=== PATIENT | male | born 1985 | race Caucasian/White ===

== ENCOUNTER 2017-04-13 09:53 | Emergency (ER) | payer OTHER ==
[~2017-04-13] VITALS: Ht 172.7 cm; Wt 84.0 kg
[2017-04-13 09:58] VITALS: BP 124/79
[2017-04-13] MEDS ORDERED: HYDROcodone/APAP 5/325 TABLET ONE (10:34)
[2017-04-13] MEDS ORDERED: HYDROcodone/APAP 5/325 TABLET PO ONE (11:00)
== END 2017-04-13 11:21 | disposition home or self-care (01) ==
LOC: ED 11:15
DX: S76.112A Strain of left quadriceps muscle, fascia and tendon, initial encounter (principal); W21.07XA Struck by softball, initial encounter; Z87.891 Personal history of nicotine dependence; Y93.64 Activity, baseball; Y99.8 Other external cause status; Y92.328 Other athletic field as the place of occurrence of the external cause
CPT/HCPCS: 99283

== ENCOUNTER 2019-05-02 09:10 | Emergency (ER) | payer OTHER ==
[~2019-05-02] VITALS: Ht 172.7 cm; Wt 77.5 kg
[2019-05-02 09:14] VITALS: BP 122/90
== END 2019-05-02 10:14 ==
LOC: ED 10:08
DX: S02.2XXB Fracture of nasal bones, initial encounter for open fracture (principal); S01.21XA Laceration without foreign body of nose, initial encounter; W21.07XA Struck by softball, initial encounter; Y93.64 Activity, baseball; Y92.328 Other athletic field as the place of occurrence of the external cause; Y99.8 Other external cause status
CPT/HCPCS: 12051; 70450; 70486; 99284